=== PATIENT | male | born 1945 | race Caucasian/White ===

== ENCOUNTER 2017-08-24 09:19 | Emergency (ER) | payer MEDICARE, BC ==
[2017-08-24 09:26] VITALS: BP 162/79
--- NOTE | 2017-09-07 17:32 | UC ---
Rosa Ruelas Alfonso, scribed for Teresa Clayton DO on 08/24/17 at 1007 . Skin Complaint HPI - HPI Summary HPI Summary: This patient is a 72 year old M presenting to [facility] with a chief complaint of a skin mole at his low back noted 1 month ago. He reports the mole has changed in appearance. The patient rates the pain 0/10 in severity. - History of Current Complaint Chief Complaint: UCSkin Time Seen by Provider: 08/24/17 10:03 Stated Complaint: MOLE ON LOWER BACK Hx Obtained From: Patient Onset/Duration: Gradual Onset, Still Present, Other - Noted 1 month ago Timing: Constant Pain Intensity: 0 Pain Scale Used: 0-10 Numeric Location: Other - Low back Associated Signs & Symptoms: Positive: Negative - Allergy/Home Medications Allergies/Adverse Reactions: Allergies Allergy/AdvReac Type Severity Reaction Status Date / Time No Known Allergies Allergy Verified 08/24/17 09:25 Review of Systems Skin: Other - skin mole at low back All Other Systems Reviewed And Are Negative: Yes PMH/Surg Hx/FS Hx/Imm Hx Previously Healthy: Yes - Surgical History Surgical History: Yes Surgery Procedure, Year, and Place: TENDON REPAIR RT FINGER, VASECTOMY - Family History Known Family History: Positive: Other - CANCER Negative: Cardiac Disease, Hypertension, Diabetes - Social History Alcohol Use: Rare Substance Use Type: None Smoking Status (MU): Former Smoker Type: Cigarettes Have You Smoked in the Last Year: No When Did the Patient Quit Smoking/Using Tobacco: 1964 - Immunization History Most Recent Influenza Vaccination: 05/2017 Physical Exam Triage Information Reviewed: Yes Appearance: Well-Appearing, No Pain Distress, Well-Nourished Vital Signs: Initial Vital Signs Temp 98.0 F 08/24/17 09:20 Pulse 76 08/24/17 09:20 Resp 16 08/24/17 09:20 BP 162/79 08/24/17 09:20 Pulse Ox 99 08/24/17 09:20 Vital Signs Reviewed: Yes Eyes: Positive: Conjunctiva Clear. Negative: Discharge ENT: Positive: Hearing grossly normal. Negative: Muffled voice, Hoarse voice Neck exam: Normal Neck: Positive: Supple Respiratory: Positive: Lungs clear, Normal breath sounds, No respiratory distress, No accessory muscle use Cardiovascular: Positive: RRR, No Murmur Abdomen Description: Positive: Nontender, Soft. Negative: Distended, Guarding Bowel Sounds: Positive: Present Musculoskeletal Exam: Normal Neurological: Positive: Alert, Muscle Tone Normal Psychological Exam: Normal Psychological: Positive: Age Appropriate Behavior Skin: Positive: Other - Warm, Dry, Normal color. 2x2 cm irregular keratosis vs suspicious nevus Course/Dx - Course Course Of Treatment: Patient will be discharged with follow up from [facility] and PCP. The patient is agreeable with this plan. Medications reviewed. High blood pressure noted. - Diagnoses Provider Diagnoses: 2x2 cm irregular keratosis vs suspicious nevus. Elevated blood pressure without diagnosis of hypertension. Discharge - Discharge Plan Condition: Stable Disposition: HOME Referrals: Ike COULTER,Collette Chavarria [Medical Doctor] - Hussain Bender MD [Primary Care Provider] - Additional Instructions: YOUR MOEL HAS CHANGED IN SIZE AND SHAPE. THIS WARRANTS INVESTIGATION BY A PRECISION INSTRUMENT MAKER. WE HAVE WRITTEN A REFERRAL. Your blood pressure was elevated at 162/79 this visit. That does not mean you have hypertension, it is probably due to your current condition. Please follow up with your primary care provider. The documentation as recorded by the Rosa montgomery Alfonso accurately reflects the service I personally performed and the decisions made by me, Teresa Clayton DO.
== END 2017-08-24 10:38 | disposition home or self-care (01) ==
LOC: UCEAST 09:19
DX: D22.5 Melanocytic nevi of trunk (principal); R03.0 Elevated blood-pressure reading, without diagnosis of hypertension; Z87.891 Personal history of nicotine dependence
CPT/HCPCS: 99211; G0463

== ENCOUNTER 2017-12-26 18:40 | Emergency (ER) | payer MEDICARE, BC ==
[2017-12-26 19:55] LABS: ABS Basophils 0 10^3/ul (0-0.2); ABS Eosinophils 0 10^3/ul (0-0.6); ABS Lymphocytes 0.8 10^3/ul (1.0-4.8); ABS Monocytes 0.4 10^3/ul (0-0.8); ABS Neutrophils 1.2 10^3/ul (1.5-7.7); ABS Nucleated RBC 0 10^3/ul; Eosinophil % 0.3 % (0-6); Hematocrit 45 % (42-52); Hemoglobin 15.5 g/dl (14.0-18.0); Mean Corpuscular HGB Conc 35 g/dl (31-36); Mean Corpuscular Hemoglobin 33 pg (27-31); Mean Corpuscular Volume 94 fL (80-94); Mean Platelet Volume 8.8 um3 (7.4-10.4); Nucleated Red Blood Cells % 0.1; Platelet Count 100 10^3/ul (150-450); Red Blood Count 4.76 10^6/ul (4.0-5.4); Red Cell Distribution Width 14 % (10.5-15); White Blood Count 2.4 10^3/ul (3.5-10.8)
[2017-12-26 20:07] LABS: EGFR Non-African American 61.1 (>60)
--- NOTE | 2017-12-26 20:26 | RAD ---
Indication: Abdominal fullness/lower abdominal pressure. Comparison: June 12, 2006 CT. Technique: Supine and upright views of the abdomen. Report: Mild linear atelectasis at the LEFT lung base. No radiographic evidence for free air. Unremarkable bowel gas pattern. Only a small volume of stool is visualized within the colon. LEFT pelvic phlebolith noted. No suspicious calcifications evident. Unremarkable soft tissue contours. IMPRESSION: 1. No acute abdominal pelvic pathologic process evident. 2. Mild LEFT basilar atelectasis.
[2017-12-26 20:49] VITALS: BP 157/97
--- NOTE | 2017-12-26 20:56 | ED ---
Miya Ruelas Emily, scribed for Rickie Mckeon MD on 12/26/17 at 1935 . GI/ HPI - HPI Summary HPI Summary: This patient is a 72 year old M presenting to [facility] with a chief complaint of decreasing amount of stool production that began 2 days ago. The patient rates the pain 0/10 in severity. Symptoms aggravated by nothing. Symptoms alleviated by nothing. Patient reports abd pressure and dizziness. Patient denies nausea, vomiting, CP, SOB, fevers, dysuria, and hematochezia. Pt denies any previous constipation issues or bowel obstructions. - History of Current Complaint Chief Complaint: EDAbdPain Time Seen by Provider: 12/26/17 19:24 Stated Complaint: ABD PAIN Hx Obtained From: Patient Onset/Duration: Started Days Ago, Still Present Timing: Constant Severity: Mild Current Severity: Mild Pain Intensity: 0 Associated Signs and Symptoms: Positive: Other: - Positive abd pressure and dizziness. Negative nausea, vomiting, CP, SOB, fevers, dysuria, and hematochezia Aggravating Factor(s): Nothing Alleviating Factor(s): Nothing - Allergy/Home Medications Allergies/Adverse Reactions: Allergies Allergy/AdvReac Type Severity Reaction Status Date / Time No Known Allergies Allergy Verified 12/26/17 18:44 PMH/Surg Hx/FS Hx/Imm Hx Previously Healthy: No Endocrine/Hematology History: Denies: Hx Diabetes Cardiovascular History: Denies: Hx Hypertension, Hx Pacemaker/ICD History: Denies: Hx Renal Disease Sensory History: Reports: Hx Hearing Aid Psychiatric History: Denies: Hx Panic Disorder - Surgical History Surgery Procedure, Year, and Place: TENDON REPAIR RT FINGER, VASECTOMY Infectious Disease History: No Infectious Disease History: Denies: Traveled Outside the [place] in Last 30 Days - Family History Known Family History: Positive: Other - CANCER Negative: Cardiac Disease, Hypertension, Diabetes - Social History Occupation: Retired Lives: With Family Alcohol Use: Rare Substance Use Type: Reports: None Smoking Status (MU): Former Smoker Type: Cigarettes Have You Smoked in the Last Year: No Review of Systems Negative: Fever Negative: Chest Pain Negative: Shortness Of Breath Positive: Other - Positive abdominal pressure and decrease in stool production. Negative hematochezia. Negative: Vomiting, Nausea Negative: dysuria Neurological: Other - Positive dizziness All Other Systems Reviewed And Are Negative: Yes Physical Exam - Summary Physical Exam Summary: Appearance: Well appearing, no pain distress Skin: warm, dry, reflects adequate perfusion Head/face: normal Eyes: EOMI, MIREYA ENT: normal, mucous membranes are moist Neck: supple, non-tender Respiratory: CTA, breath sounds present Cardiovascular: RRR, pulses symmetrical Abdomen: non-tender, soft Rectal Exam: Rectal vault shows no impaction. Its mostly empty with soft brown stool. Bowel Sounds: present Musculoskeletal: normal, strength/ROM intact Neuro: normal, sensory motor intact, A&Ox3 Triage Information Reviewed: Yes Vital Signs On Initial Exam: Initial Vitals Temp Pulse Resp BP Pulse Ox 98.1 F 92 16 150/78 94 12/26/17 18:45 12/26/17 18:45 12/26/17 18:45 12/26/17 18:45 12/26/17 18:45 Vital Signs Reviewed: Yes Diagnostics - Vital Signs Vital Signs Temp Pulse Resp BP Pulse Ox 12/26/17 19:17 94 95 12/26/17 19:15 137/78 12/26/17 18:45 98.1 F 92 16 150/78 94 - Laboratory Lab Results: Lab Results 12/26/17 12/26/17 12/26/17 Range/Units 19:40 19:40 19:40 WBC 2.4 L (3.5-10.8) 10^3/ul RBC 4.76 (4.0-5.4) 10^6/ul Hgb 15.5 (14.0-18.0) g/dl Hct 45 (42-52) % MCV 94 (80-94) fL MCH 33 H (27-31) pg MCHC 35 (31-36) g/dl RDW 14 (10.5-15) % Plt Count 100 L (150-450) 10^3/ul MPV 8.8 (7.4-10.4) um3 Neut % (Auto) 48.3 (38-83) % Lymph % (Auto) 33.0 (25-47) % [place] % (Auto) 17.8 H (0-7) % Eos % (Auto) 0.3 (0-6) % Baso % (Auto) 0.6 (0-2) % Absolute Neuts (auto) 1.2 L (1.5-7.7) 10^3/ul Absolute Lymphs (auto) 0.8 L (1.0-4.8) 10^3/ul Absolute Monos (auto) 0.4 (0-0.8) 10^3/ul Absolute Eos (auto) 0 (0-0.6) 10^3/ul Absolute Basos (auto) 0 (0-0.2) 10^3/ul Absolute Nucleated RBC 0 10^3/ul Nucleated RBC % 0.1 Sodium 137 L (139-145) mmol/L Potassium 3.8 (3.5-5.0) mmol/L Chloride 102 (101-111) mmol/L Carbon Dioxide 25 (22-32) mmol/L Anion Gap 10 (2-11) mmol/L BUN 21 (6-24) mg/dL Creatinine 1.17 (0.67-1.17) mg/dL Est GFR ( Amer) 78.6 (>60) Est GFR (Non-Af Amer) 61.1 (>60) BUN/Creatinine Ratio 17.9 (8-20) Glucose 93 (70-100) mg/dL Lactic Acid 0.9 (0.5-2.0) mmol/L Calcium 8.7 (8.6-10.3) mg/dL Total Bilirubin 0.70 (0.2-1.0) mg/dL AST 71 H (13-39) U/L ALT 59 H (7-52) U/L Alkaline Phosphatase 59 (34-104) U/L Troponin I 0.02 (<0.04) ng/mL C-Reactive Protein 51.97 H (< 5.00) mg/L Total Protein 6.3 L (6.4-8.9) g/dL Albumin 3.8 (3.2-5.2) g/dL Globulin 2.5 (2-4) g/dL Albumin/Globulin Ratio 1.5 (1-3) Lipase 35 (11.0-82.0) U/L Result Diagrams: 12/26/17 19:40 12/26/17 19:40 Lab Statement: Any lab studies that have been ordered have been reviewed, and results considered in the medical decision making process. - Radiology Abd XR Radiology Interpretation Completed By: Radiologist - Abd XR reveals, per radiologist, 1. No acute abdominal pelvic pathologic process evident. 2. Mild LEFT basilar atelectasis. ED physician has reviewed this radiology report. - EKG 1933 Cardiac Rate: Tachycardia EKG Rhythm: Sinus Rhythm - 91 BPM EKG Interpretation: Nml axis and intervals Re-Evaluation - Re-Evaluation First Eval Re-Evaluation Time: 20:36 Change: Improved Comment: Pt feels better. Pt reports having cough and cold symptoms recently. GIGU Course/Dx - Course Assessment/Plan: Pt reports having cough and cold symptoms recently, which explains lowered WBC. Daily drinker which explains his mild LFT elevation. His abd is non-tender and the xrays are non-obstructive. There is no constipation evident. D/C with prn miralax and to f/u with PMD Thursday. likely all due to recent URI sx/viral syndr. - Diagnoses Differential Diagnoses - Male: Bowel Obstruction, Dehydration, Gall Bladder Disease, Gastroenteritis (Bacterial), Gastroenteritis (Viral), Irritable Bowel Syndrome, Pancreatitis, Urinary Tract Infection, Other - constipation Provider Diagnoses: Viral syndrome, Decreased stooling Discharge - Sign-Out/Discharge Documenting (check all that apply): Discharge - Discharge home - Discharge Plan Condition: Good Disposition: HOME Patient Education Materials: Viral Syndrome (ED) Referrals: Hussain Bender MD [Primary Care Provider] - Additional Instructions: Use a dose of Miralax daily until Thursday. This can be obtained over the counter. Cut back on drinking. Return with fever, abdominal pain, vomiting, worse or other concerns as discussed. Follow up with your doctor on thursday. - Billing Disposition and Condition Condition: GOOD Disposition: HOME The documentation as recorded by the Miya montgomery Emily accurately reflects the service I personally performed and the decisions made by me, Rickie Mckeon MD.
== END 2017-12-26 20:49 | disposition home or self-care (01) ==
LOC: ED 18:40
DX: B34.9 Viral infection, unspecified (principal); R19.5 Other fecal abnormalities; Z87.891 Personal history of nicotine dependence
CPT/HCPCS: 36415; 74019; 80053; 83605; 83690; 84484; 85025; 86140; 87040; 93005; 99282

== ENCOUNTER 2018-07-27 07:28 | Inpatient (IN) | payer MEDICARE, BC ==
[2018-07-27] MEDS ORDERED: Ondansetron INJ* 2 MG/ML VIAL IV ONE (08:02)
[2018-07-27] MEDS ORDERED: NS 0.9% 1000 ML* 1,000 ML IV ONE ×2 (08:02→09:10)
[2018-07-27] MEDS ORDERED: Ondansetron INJ* 2 MG/ML VIAL ONE (08:03)
[2018-07-27 08:21] LABS: ABS Basophils 0 10^3/ul (0-0.2); ABS Eosinophils 0.1 10^3/ul (0-0.6); ABS Lymphocytes 0.9 10^3/ul (1.0-4.8); ABS Monocytes 0.5 10^3/ul (0-0.8); ABS Neutrophils 3.2 10^3/ul (1.5-7.7); ABS Nucleated RBC 0 10^3/ul; Eosinophil % 1.3 % (0-6); Hematocrit 42 % (42-52); Hemoglobin 14.2 g/dl (14.0-18.0); Lymphocyte % 19.1 % (25-47); Mean Corpuscular HGB Conc 34 g/dl (31-36); Mean Corpuscular Hemoglobin 34 pg (27-31); Mean Corpuscular Volume 101 fL (80-94); Mean Platelet Volume 8.2 um3 (7.4-10.4); Nucleated Red Blood Cells % 0.1; Platelet Count 178 10^3/ul (150-450); Red Blood Count 4.22 10^6/ul (4.00-5.40); Red Cell Distribution Width 13 % (10.5-15); White Blood Count 4.8 10^3/ul (3.5-10.8)
[2018-07-27 08:36] LABS: INR 0.91 (0.77-1.02)
[2018-07-27 08:38] LABS: EGFR Non-African American 62.8 (>60)
[2018-07-27 09:59] LABS: Urine Appearance Clear; Urine Blood Negative (Negative); Urine Color Yellow; Urine Ketones Trace (Negative); Urine Protein Negative (Negative); Urine Specific Gravity 1.017 (1.010-1.030); Urine Urobilinogen Negative (Negative)
--- NOTE | 2018-07-27 10:35 | ED ---
GI/ HPI - HPI Summary HPI Summary: Pt. is a 73 y.o male who presents to the ER for vomiting and diarrhea with blood. Pt. states last night he started with blood tinged emesis and had a loose black bowel movement. Pt. denies abd. pain, CP, SOB. Past medical hx of BPH. Pt. admits to occasional aspirin use. He notes daily ETOH use and states he usually has a couple beers and a mixed drink per day. Symptoms are moderate in severity. No current modifying factors. Pt. also notes that he has been under a lot of stress over the last several months. He notes his left him in September and that his son in [place] has colorectal cancer. - History of Current Complaint Chief Complaint: EDNauseaVomitDiarrh Time Seen by Provider: 07/27/18 08:01 Stated Complaint: ABD PAIN Hx Obtained From: Patient Pain Intensity: 0 - Allergy/Home Medications Allergies/Adverse Reactions: Allergies Allergy/AdvReac Type Severity Reaction Status Date / Time No Known Allergies Allergy Verified 12/26/17 18:44 Home Medications: Home Medications Finasteride TAB* [Proscar TAB*] 5 mg PO DAILY 07/27/18 [History Confirmed ] Tamsulosin CAP* [Flomax CAP*] 0.4 mg PO DAILY 07/27/18 [History Confirmed ] PMH/Surg Hx/FS Hx/Imm Hx Previously Healthy: Yes Endocrine/Hematology History: Denies: Hx Diabetes Cardiovascular History: Denies: Hx Hypertension, Hx Pacemaker/ICD History: Denies: Hx Renal Disease Sensory History: Reports: Hx Hearing Aid Psychiatric History: Denies: Hx Panic Disorder - Surgical History Surgery Procedure, Year, and Place: TENDON REPAIR RT FINGER, VASECTOMY Infectious Disease History: No Infectious Disease History: Denies: Traveled Outside the [place] in Last 30 Days - Family History Known Family History: Positive: Other - CANCER Negative: Cardiac Disease, Hypertension, Diabetes - Social History Occupation: Retired Lives: Alone Alcohol Use: Daily Alcohol Amount: 2-3drinks Substance Use Type: Reports: None Smoking Status (MU): Former Smoker Type: Cigarettes Have You Smoked in the Last Year: No Review of Systems Constitutional: Negative Eyes: Negative ENT: Negative Cardiovascular: Negative Negative: Chest Pain Respiratory: Negative Negative: Shortness Of Breath Positive: Vomiting, Diarrhea, Nausea. Negative: Abdominal Pain Genitourinary: Negative Neurological: Negative All Other Systems Reviewed And Are Negative: Yes Physical Exam Triage Information Reviewed: Yes Vital Signs On Initial Exam: Initial Vitals Temp Pulse Resp BP Pulse Ox 97.5 F 122 20 118/90 95 07/27/18 07:33 07/27/18 07:33 07/27/18 07:33 07/27/18 07:33 07/27/18 07:33 Vital Signs Reviewed: Yes Appearance: Positive: Well-Appearing - Pt. sitting up in bed in NAD. Skin: Positive: Warm, Dry Head/Face: Positive: Normal Head/Face Inspection Eyes: Positive: Normal, EOMI Neck: Positive: Supple Respiratory/Lung Sounds: Positive: Clear to Auscultation, Breath Sounds Present Cardiovascular: Positive: Normal, RRR Abdomen Description: Positive: Nontender, Soft, Other: - Rectal exam: Performed with male nurse in room. Dried melenic stool noted around rectum. Digital exam revealed soft melenic stool. Neurological: Positive: Normal, CN Intact II-III Psychiatric: Positive: Affect/Mood Appropriate Diagnostics - Vital Signs Vital Signs Temp Pulse Resp BP Pulse Ox 07/27/18 07:33 97.5 F 122 20 118/90 95 - Laboratory Lab Results: Lab Results 07/27/18 07/27/18 07/27/18 Range/Units 08:11 08:11 08:11 WBC 4.8 (3.5-10.8) 10^3/ul RBC 4.22 (4.00-5.40) 10^6/ul Hgb 14.2 (14.0-18.0) g/dl Hct 42 (42-52) % MCV 101 H (80-94) fL MCH 34 H (27-31) pg MCHC 34 (31-36) g/dl RDW 13 (10.5-15) % Plt Count 178 (150-450) 10^3/ul MPV 8.2 (7.4-10.4) um3 Neut % (Auto) 67.3 (38-83) % Lymph % (Auto) 19.1 L (25-47) % [place] % (Auto) 11.3 H (0-7) % Eos % (Auto) 1.3 (0-6) % Baso % (Auto) 1.0 (0-2) % Absolute Neuts (auto) 3.2 (1.5-7.7) 10^3/ul Absolute Lymphs (auto) 0.9 L (1.0-4.8) 10^3/ul Absolute Monos (auto) 0.5 (0-0.8) 10^3/ul Absolute Eos (auto) 0.1 (0-0.6) 10^3/ul Absolute Basos (auto) 0 (0-0.2) 10^3/ul Absolute Nucleated RBC 0 10^3/ul Nucleated RBC % 0.1 INR (Anticoag Therapy) 0.91 (0.77-1.02) APTT 29.0 (26.0-36.3) seconds Sodium 138 (135-145) mmol/L Potassium 4.3 (3.5-5.0) mmol/L Chloride 104 (101-111) mmol/L Carbon Dioxide 26 (22-32) mmol/L Anion Gap 8 (2-11) mmol/L BUN 42 H (6-24) mg/dL Creatinine 1.14 (0.67-1.17) mg/dL Est GFR ( Amer) 76.0 (>60) Est GFR (Non-Af Amer) 62.8 (>60) BUN/Creatinine Ratio 36.8 H (8-20) Glucose 101 H (70-100) mg/dL Lactic Acid (0.5-2.0) mmol/L Calcium 8.7 (8.6-10.3) mg/dL Magnesium 2.0 (1.9-2.7) mg/dL Total Bilirubin 1.30 H (0.2-1.0) mg/dL AST 25 (13-39) U/L ALT 20 (7-52) U/L Alkaline Phosphatase 70 (34-104) U/L Troponin I 0.00 (<0.04) ng/mL C-Reactive Protein 2.65 (<8.01) mg/L Total Protein 5.8 L (6.4-8.9) g/dL Albumin 3.8 (3.2-5.2) g/dL Globulin 2.0 (2-4) g/dL Albumin/Globulin Ratio 1.9 (1-3) Lipase 12 (11.0-82.0) U/L Urine Color Urine Appearance Urine pH (5-9) Ur Specific [place] (1.010-1.030) Urine Protein (Negative) Urine Ketones (Negative) Urine Blood (Negative) Urine Nitrate (Negative) Urine Bilirubin (Negative) Urine Urobilinogen (Negative) Ur Leukocyte Esterase (Negative) Urine Glucose (Negative) 07/27/18 07/27/18 Range/Units 08:11 09:42 WBC (3.5-10.8) 10^3/ul RBC (4.00-5.40) 10^6/ul Hgb (14.0-18.0) g/dl Hct (42-52) % MCV (80-94) fL MCH (27-31) pg MCHC (31-36) g/dl RDW (10.5-15) % Plt Count (150-450) 10^3/ul MPV (7.4-10.4) um3 Neut % (Auto) (38-83) % Lymph % (Auto) (25-47) % [place] % (Auto) (0-7) % Eos % (Auto) (0-6) % Baso % (Auto) (0-2) % Absolute Neuts (auto) (1.5-7.7) 10^3/ul Absolute Lymphs (auto) (1.0-4.8) 10^3/ul Absolute Monos (auto) (0-0.8) 10^3/ul Absolute Eos (auto) (0-0.6) 10^3/ul Absolute Basos (auto) (0-0.2) 10^3/ul Absolute Nucleated RBC 10^3/ul Nucleated RBC % INR (Anticoag Therapy) (0.77-1.02) APTT (26.0-36.3) seconds Sodium (135-145) mmol/L Potassium (3.5-5.0) mmol/L Chloride (101-111) mmol/L Carbon Dioxide (22-32) mmol/L Anion Gap (2-11) mmol/L BUN (6-24) mg/dL Creatinine (0.67-1.17) mg/dL Est GFR ( Amer) (>60) Est GFR (Non-Af Amer) (>60) BUN/Creatinine Ratio (8-20) Glucose (70-100) mg/dL Lactic Acid 0.6 (0.5-2.0) mmol/L Calcium (8.6-10.3) mg/dL Magnesium (1.9-2.7) mg/dL Total Bilirubin (0.2-1.0) mg/dL AST (13-39) U/L ALT (7-52) U/L Alkaline Phosphatase (34-104) U/L Troponin I (<0.04) ng/mL C-Reactive Protein (<8.01) mg/L Total Protein (6.4-8.9) g/dL Albumin (3.2-5.2) g/dL Globulin (2-4) g/dL Albumin/Globulin Ratio (1-3) Lipase (11.0-82.0) U/L Urine Color Yellow Urine Appearance Clear Urine pH 5.0 (5-9) Ur Specific [place] 1.017 (1.010-1.030) Urine Protein Negative (Negative) Urine Ketones Trace A (Negative) Urine Blood Negative (Negative) Urine Nitrate Negative (Negative) Urine Bilirubin Negative (Negative) Urine Urobilinogen Negative (Negative) Ur Leukocyte Esterase Negative (Negative) Urine Glucose Negative (Negative) Result Diagrams: 07/27/18 08:11 07/27/18 08:11 Lab Statement: Any lab studies that have been ordered have been reviewed, and results considered in the medical decision making process. GIGU Course/Dx - Course Course Of Treatment: Pt. presenting with c/o blood tinged emesis and melenic stool. No gross bleeding on exam. BP is stable. HR elevated in the 120's. IV fluids started. Pt. given zofran. Blood work ordered. Labs show stable H and H. Stool positive for blood. Suspect bleeding upper GI ulcer secondary to ETOH abuse and stress. Pt. continues to be persistently tachycardic after 2 L of IV fluids. Hospitalist was consulted for admission. I spoke with Dr. Pop and pt. has been accepted to her service. Started on protonix. - Diagnoses Differential Diagnoses - Male: Gastritis, Gastroenteritis (Viral), Peptic Ulcer Disease, Ulcerative Colitis/Crohn's Disease Provider Diagnoses: Upper GI bleed, Alcohol abuse Discharge - Sign-Out/Discharge Documenting (check all that apply): Patient Departure - Discharge Plan Condition: Stable Disposition: ADMITTED TO [facility] Referrals: Hussain Bender MD [Primary Care Provider] - - Billing Disposition and Condition Condition: STABLE Disposition: Admitted to [facility]
[2018-07-27] MEDS ORDERED: Pantoprazole IV* 40 MG IV ONE (10:37)
[2018-07-27] MEDS ORDERED: Ondansetron INJ* 2 MG/ML VIAL IV PRN (11:55)
[2018-07-27] MEDS ORDERED: Al Hydrox/Mg Hydrox/Simet LIQ* 30 ML UDC PO PRN (11:55)
[2018-07-27] MEDS ORDERED: Acetaminophen TAB* 325 MG PO PRN (11:55)
[2018-07-27] MEDS ORDERED: Famotidine IV * 20 MG in NS 0.9% 100 ML* 100 ML IVPB SCH (12:00)
--- NOTE | 2018-07-27 12:06 | PN ---
Hospitalist Progress Note Date of Service: 07/27/18 HOSPITALIST ADDENDUM Mr Mccracken is 73yo M with PMH of BPH, ETOH abuse, who presented to ED with c/ o hematemesis and melena yesterday, with episodes that continued today. Denies using NSAIDs. Labs reviewed - H/H is normal with MCV elevation, BUN elevated with normal creatinine compatible with UGI bleed. Will admit to medical floor, continue IVF and Protonix drip, monitor H/H. Plan for GI consult for EGD. Agree with current management.
[2018-07-27] MEDS: Pantoprazole* 80 mg IN NS 80 MG/250 ML BAG IVPB SCH (12:36)
--- NOTE | 2018-07-27 14:02 | HP ---
AMENDED REPORT NOW INCLUDES DESIGNATED COSIGNER CC: Dr. Hussain Bender.* HISTORY AND PHYSICAL: DATE OF ADMISSION: 07/27/18 PRIMARY CARE PROVIDER: Dr. Hussain Bender. ATTENDING PHYSICIAN: Dr. Alena Mansfield * (dictated by Anna Holley NP). CHIEF COMPLAINT: 1. Bloody emesis. 2. Dark stools. HISTORY OF PRESENT ILLNESS: Mr. Rice is a 73-year-old male with past medical history of BPH and alcohol abuse, who presented to the emergency room today with complaints of bloody emesis and dark bowel movements. He states he had a large breakfast yesterday morning, which was more than he usually eats, consisting of eggs, grullon and a biscuit with gravy. He did not eat any lunch. He reported having a whiskey around 4:30 p.m. a cup of coffee, and then 2 beers and some popcorn around 5 p.m. Almost immediately after drinking the beer had an episode of vomiting, which he believed contained blood. Approximately half hour later, he had a black loose bowel movement. Later that night, he had a salad with red wine vinegar dressing. Immediately afterwards, he had another episode of emesis with blood. He additionally had 1 more loose black bowel movement before bed. He awoke around approximately 3 a.m. this morning with another black loose bowel movement. He complained of feeling dizzy and had decreased oral intake. He called [facility] and was directed to the emergency room. He called EMS, as he was afraid he would not be able to drive himself to the emergency room. After arriving in the emergency room, he had 1 more black bowel movement, though he reports this was more formed than the previous one. He reports that in September he split with his of 47 years. He also reports that his 38-year-old son has terminal brain cancer and both of these issues have been significant stressors for him. This has lead to increased alcohol intake, he reports approximately 1 to 3 drinks per day. He denies any history of previous GI bleed and felt in his usual health prior to this episode. While in the emergency room, Mr. Rice was noted to have a normal H and H. His MCV and MCH are slightly elevated. He had an elevated BUN and an elevated total bilirubin. Because of the concern for upper GI bleed, the hospitalist service was asked to evaluate for admission. PAST MEDICAL HISTORY: 1. BPH. 2. Alcohol abuse. PAST SURGICAL HISTORY: 1. Right finger tendon repair. 2. Vasectomy. HOME MEDICATIONS: 1. Tamsulosin 0.4 mg p.o. daily. 2. Finasteride 5 mg p.o. daily. 3. Tadalafil 5 mg p.o. daily p.r.n. ALLERGIES: No known drug allergies. FAMILY HISTORY: His mother in her 80s and had a medical history significant for cancer of unknown type, coronary artery disease, hypertension. His father at 86 due to complications from Alzheimer's. SOCIAL HISTORY: He reports a remote smoking history for approximately 3 years back in the 1960s. As noted above, he reports drinking approximately 1 to 3 drinks per day, beer and liquor. He denies recreational drug use. 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 He lives alone and has recently been from his as noted above. The patient's son, Donaldo, will be his surrogate decision maker in the event he is unable to make his own decisions. REVIEW OF SYSTEMS: An 11-point review of systems was performed and all the pertinent positive and negative findings are in the HPI. All other systems are negative. PHYSICAL EXAMINATION GENERAL: Mr. Rice is a well-developed, well-nourished white male, sitting in bed, in no acute distress. He appears his stated age. VITAL SIGNS: Temp 97.5, heart rate 122, respiratory rate 20, oxygen saturation 95% on room air, and blood pressure 118/90. HEENT: Head is normocephalic and atraumatic. Visual cabrera are grossly intact. Pupils are equal, round, and reactive to light and accommodation. Extraocular movements intact. Sclera without icterus. Oral mucous membranes moist and without lesions. NECK: Full range of motion. Thyroid not palpable. Trachea midline. No lymphadenopathy. RESPIRATORY: Symmetrical chest expansion. No chest wall deformities. Lungs are clear to auscultation throughout. No rhonchi, wheezes, or rales. CARDIOVASCULAR: Tachycardic with a regular rhythm. S1, S2 present. No murmurs , rubs, or gallops. No JVD. ABDOMEN: Slight tenderness to deep palpation to the left lower quadrant, otherwise nontender throughout. Bowel sounds are normoactive throughout. No bruits appreciated. No hepatosplenomegaly. EXTREMITIES: Skin warm and smooth bilaterally. No edema. No clubbing or cyanosis. Pedal pulses 2+ bilaterally. MUSCULOSKELETAL: Full range motion. No pain or deformities. NEURO: Awake, alert, and oriented x4. Cranial nerves II through XII are grossly intact. Moves all extremities. SKIN: Grossly intact without lesions. DIAGNOSTIC STUDIES/LAB DATA: WBC 4.8, RBC 4.22, hemoglobin 14.2, hematocrit 42 , MCV 101, MCH 34, platelets 178. INR 0.91. Sodium 138, potassium 4.3, chloride 104, carbon dioxide 26, BUN 42, creatinine 1.14, glucose 101, lactic acid 0.6, magnesium 2.0. Total bili 1.3, AST 25, ALT 28, alk phos 70. Troponin 0.00. Urinalysis unremarkable. EKG shows sinus tachycardia with a rate of 107. ASSESSMENT AND PLAN: Mr. Rice is a 73-year-old male with past medical history of benign prostatic hypertrophy and alcohol abuse, who presented to the emergency room today with complaints of hematemesis and melena and was found to have an upper GI bleed. The patient will be admitted observation status for: 1. Upper GI bleed. The patient's H and H is stable at this point and we will continue to trend the H and H q.6 hours. I have placed him on a Protonix drip and IV fluids. I have consulted GI. I have placed him on telemetry monitoring due to his tachycardia. We will also check B12 and folate levels due to his elevated MCV. He can have Zofran for nausea. 2. Benign prostatic hypertrophy. Continue finasteride and tamsulosin. 3. Alcohol abuse. We will monitor the patient for now. I have low suspicion that he will show severe signs of withdrawal as he has noted he has stopped drinking in the past; however, he will be placed on [facility] protocol if necessary. 4. Fluids, electrolytes, and nutrition: As noted above, I will give him fluids for hydration. I have ordered normal saline at a rate of 125. He will be n.p.o. at this time pending a GI consult. 5. Code status: The patient will be a full code. 6. DVT prophylaxis: Based on the DVT Risk Assessment, the patient scores a 2, making him moderate risk. I have placed him on SCDs only. TIME SPENT: Approximately 60 minutes were spent on this admission, greater than half of that time spent with the patient obtaining my history, performing my physical exam, and reviewing the plan of care. This case has been reviewed with my attending, Dr. Mansfield, who is in agreement with the plan of care. ANNA HOLLEY, [employer] [id number]/[facility] #: [id number] TARA
[2018-07-27] MEDS ORDERED: fentaNYL* 50 MCG/ML 2 ML VIAL (100 MCG VIAL) ONE (14:38)
[2018-07-27] MEDS ORDERED: Midazolam* 1 MG/ML 10 ML VIAL (10 MG) ONE (14:38)
[2018-07-27 16:34] LABS: Hematocrit 35 % (42-52)
--- NOTE | 2018-07-27 17:27 | CONS ---
GASTROENTEROLOGY CONSULT: DATE: 07/27/18 REFERRING PHYSICIANS: Dr. Rickie Mckeon, emergency room; Dr. Hussain Bender. REASON FOR CONSULTATION: Hematemesis and melena beginning yesterday evening with no history of syncope. 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 Shortly thereafter, he had a loose black stool. He went home and had a couple of more black stools over the next few hours including awakening him at midnight at 3 a.m. There was no dizziness or syncope. He had no more emesis. This morning, he had no pain, but was concerned and came in by ambulance. His vitals have been stable. CBC shows hemoglobin 14. BUN elevated in the 40s over his baseline in the 20s. He states he has not been treated for GI issues by Dr. Bender. He does have some Tums at home and will have it with episode of indigestion and takes some a couple of times a month. A couple of months ago, he began taking a baby aspirin and then running out of that and he has been taking an adult aspirin about third day. He denies any NSAIDs and several indications were reviewed. He has had colonoscopies regularly through the [facility], most recently possibly in 2016 that was negative. He has son, age 38, living in [place] with metastatic colon cancer. PAST MEDICAL HISTORY: 1. Vasectomy in 1970s. 2. BPH. 3. Stress and marital discord. SOCIAL HISTORY: He was from his over 40 years in September. There is tremendous stress as his son in [place] has metastatic colon cancer , widespread including to brain. Apparently, documentary has been about his son 's treatment, "the mountain in the hallway." He has a second son in [facility] living locally ). REVIEW OF SYSTEMS: No history of dizziness, seizures, TIA, CVA, MS, neurologic disorder, angina, abnormal stress test, TB, hemoptysis, hepatitis, or abdominal surgery. He did have a colon polyp longtime ago. EXAM: He is a surprisingly healthy appearing, older man, appearing quite fit. He is very polite and apologetic. Reviewing all the things that he believes lead to this situation. HEENT exam shows no icterus or adenopathy. His lungs are clear and heart sounds are normal. The abdomen is symmetric, soft and nontender. Rectal: Deferred. Extremities show no edema or deformity. Neurologic is nonfocal. LABS: INR normal at 0.9 and LFTs normal with ALT 22. IMPRESSION: Upper GI bleeding, which may very well be from Farida-Wang or gastritis as opposed to a defined ulcer. Upper endoscopy is indicated to prognostic aid and allow specific treatment advice. [id number]/[facility] #: [id number] [facility]
[2018-07-27 19:45] LABS: Hematocrit 38 % (42-52)
[2018-07-27] MEDS: NS 0.9% 1000 ML* 1,000 ML IV SCH (20:25)
[2018-07-28] MEDS: Pantoprazole* 80 mg IN NS 80 MG/250 ML BAG IVPB SCH ×3 (01:07→15:36)
[2018-07-28] MEDS: NS 0.9% 1000 ML* 1,000 ML IV SCH ×2 (01:20→13:56)
[2018-07-28 02:14] LABS: Hematocrit 34 % (42-52); Hemoglobin 11.7 g/dl (14.0-18.0)
--- NOTE | 2018-07-28 02:55 | PRO ---
DATE: 07/27/18 - ROOM #[id number] REFERRING PHYSICIANS: Hussain Bender MD; Alena Mansfield MD * PROCEDURE: Upper gastrointestinal endoscopy and biopsy of Mahoney's segment at 32, erosion of Mahoney's esophagus at 35, and esophageal mass at 28 cm. INDICATION: Hematemesis in a man drinking more alcohol recently because of marital stress. ENDOSCOPIST: Hrebie Washburn MD MEDICATIONS: Midazolam 8, fentanyl 75. FINDINGS: He is a slender, generally healthy-appearing older man, in no distress. In general, he appears quite comfortable. He was positioned on his side and incremental doses of midazolam and fentanyl given with good effect and he was quite comfortable with minimal gagging during the procedure. EGD: Larynx - narrow, symmetric views. Esophagus - easily entered and from 18 to 21 or 22, the mucosa was normal and then there was a transition to Mahoney's with no erosions or ulcer. It was a very long Mahoney's segment. At 28 at about 4 o'clock orientation, there was a mass one third circumferential, moderately elevated plaque-like with a slight blood clot attached in the central portion that was slightly depressed. The mass clearly had a worrisome appearance. It was not occluding the lumen. The Mahoney's segment continued and there was a small erosion with slight irregularity of the mucosa at about 35 cm. This area was biopsied x3. Smooth Mahoney's at 32 to 32-1/2 was biopsied x2 and the mass itself was biopsied x5 in various aspects. The EG junction was at 38 and the hiatus at 40 to 41. Stomach - generally normal mucosa without any blood contained in it. The rugal pattern was normal. The antrum appeared normal. Duodenum - pylorus, bulb, and second through fourth portions appear normal. IMPRESSION: 1. Moderate hiatal hernia. 2. Long segment Mahoney's esophagus. 3. Mahoney's erosion at 35 cm - biopsy pending. 4. Esophageal mass at 28 cm, biopsy pending. [id number]/[facility] #: [id number] [facility]
[2018-07-28 06:52] LABS: ABS Basophils 0.1 10^3/ul (0-0.2); ABS Eosinophils 0.1 10^3/ul (0-0.6); ABS Lymphocytes 0.9 10^3/ul (1.0-4.8); ABS Monocytes 0.4 10^3/ul (0-0.8); ABS Neutrophils 2.7 10^3/ul (1.5-7.7); ABS Nucleated RBC 0 10^3/ul; Hematocrit 33 % (42-52); Hemoglobin 11.6 g/dl (14.0-18.0); Lymphocyte % 21.2 % (25-47); Mean Corpuscular HGB Conc 35 g/dl (31-36); Mean Corpuscular Hemoglobin 35 pg (27-31); Mean Corpuscular Volume 100 fL (80-94); Mean Platelet Volume 8.3 um3 (7.4-10.4); Nucleated Red Blood Cells % 0; Platelet Count 140 10^3/ul (150-450); Red Blood Count 3.33 10^6/ul (4.00-5.40); Red Cell Distribution Width 13 % (10.5-15); White Blood Count 4.1 10^3/ul (3.5-10.8)
[2018-07-28 07:07] LABS: EGFR Non-African American 66.8 (>60)
[2018-07-28] MEDS ORDERED: Iohexol 300* (CONTRAST) 10 ML SDV IV ONE (08:21)
[2018-07-28] MEDS: Cyanocobalamin TAB* 500 MCG PO SCH (10:26)
[2018-07-28] MEDS: Tamsulosin CAP* 0.4 MG PO SCH (10:26)
[2018-07-28] MEDS: Finasteride TAB* 5 MG PO SCH (10:27)
--- NOTE | 2018-07-28 10:31 | RAD ---
HISTORY: esophageal cancer staging COMPARISONS: CT of the abdomen and pelvis dated June 12, 2006 TECHNIQUE: Multiple contiguous axial CT scans were obtained of the chest, abdomen, and pelvis after the administration of intravenous contrast. Coronal and sagittal multiplanar reformations are submitted for review.. Oral contrast was administered. Delayed images were obtained through the abdomen and pelvis. FINDINGS: CHEST NECK AND THYROID: The lower neck and thyroid are unremarkable. CHEST WALL: There is no lower cervical, axillary, or supraclavicular lymphadenopathy by size criteria. HEART AND PERICARDIUM: Coronary artery calcifications are noted. AORTA AND PULMONARY VASCULATURE: There is calcification of the thoracic aorta. The pulmonary vasculature is unremarkable. MEDIASTINUM: There is no mediastinal lymphadenopathy by size criteria. FAISAL: There is no hilar lymphadenopathy by size criteria. AIRWAY AND ESOPHAGUS: There is focal mucosal thickening of the mid third of the esophagus. LUNG PARENCHYMA: There is a 0.5 cm pleural-based nodule of the left lower lobe on axial image 46. There are small, 0.3 cm nodules along the left fissure consistent with intrapulmonary lymph nodes. PLEURA: No pleural abnormalities are noted. BONES AND SOFT TISSUES: Mild degenerative changes are noted. ABDOMEN/PELVIS: LIVER: The liver is diffusely low in attenuation compared to the spleen. There are no focal hepatic parenchymal masses. BILE DUCTS: There is no intrahepatic or extrahepatic biliary dilatation. GALLBLADDER: The gallbladder is normal, without pericholecystic inflammatory change. PANCREAS: The pancreas is normal, without mass or ductal dilatation. SPLEEN: Normal in size and appearance. UPPER GI TRACT: Evaluation of the gastrointestinal tract is limited by incomplete gastric distention. There is a 2.6 cm diverticulum of the second stage of the duodenum. SMALL BOWEL & MESENTERY: The small bowel is normal in contour, course, and caliber. There is no obstruction or dilatation. COLON: There is extensive diverticulosis of the descending and sigmoid colon. There is no pericolonic inflammatory change. ADRENALS: Normal bilaterally. KIDNEYS: The kidneys are normal in shape, size, contour, and axis. There is no hydronephrosis or nephrolithiasis. BLADDER: The bladder is smooth in contour. PELVIC ORGANS: The prostate is diffusely enlarged. The seminal vesicles are symmetric. AORTA: There is calcific atherosclerotic disease of the abdominal aorta and its branches, without aneurysmal dilatation IVC: Unremarkable LYMPH NODES: There is no lymphadenopathy by size criteria. ABDOMINAL WALL: There is no evidence for abdominal wall hernia. BONES AND SOFT TISSUES: There are mild diffuse degenerative changes. OTHER: None IMPRESSION: 1. FOCAL MUCOSAL THICKENING OF THE MID THIRD OF THE ESOPHAGUS. 2. LOW SUSPICION 0.5 CM PLEURAL-BASED NODULE OF THE LEFT LOWER LOBE. 3. NO LYMPHADENOPATHY BY SIZE CRITERIA. 4. EXTENSIVE COLONIC DIVERTICULOSIS. 5. DIVERTICULUM OF THE SECOND STAGE OF THE DUODENUM. 6. ATHEROSCLEROSIS. 7. ENLARGED PROSTATE.
--- NOTE | 2018-07-28 17:16 | PN ---
Subjective Date of Service: 07/28/18 Interval History: Continues to have melena.Hgb/Hct stable. No light headedness, SOB or chest pain. CT abd/pelvis without clear masses (other than esophagous) or LAD. Diverticulosis, Prostate enlargement. Does occasionally take TUMS for acid reflux like symptoms. Biopsy has resulted in @28cm with invasive mod-poorly differentiated adenocarcinoma and @35cm with moderately differentiated adenocarcinoma. Had many questions answered, some of the multiple times. Very active skier. Had MRI of Brain on 12/15/[address] Blood (unremarkable). [facility] [place] (had some hearing issues and got b/l hearing aides). Had MOCA of . 1-2 beers a night plus liquor. Son Donaldo at bedside Objective Active Medications: Acetaminophen (Tylenol Tab*) 650 mg PO Q4H PRN PRN Reason: FEVER/PAIN Al Hydrox/Mg Hydrox/Simethicone (Maalox Plus*) 30 ml PO Q6H PRN PRN Reason: INDIGESTION Cyanocobalamin (Vitamin B12 Tab*) 1,000 mcg PO DAILY [facility] Last Admin: 07/28/18 10:26 Dose: 1,000 mcg Finasteride (Proscar Tab*) 5 mg PO DAILY [facility] Last Admin: 07/28/18 10:27 Dose: 5 mg Sodium Chloride (Ns 0.9% 1000 Ml*) 1,000 mls @ 125 mls/hr IV PER RATE [facility] Last Admin: 07/28/18 13:56 Dose: 125 mls/hr Pantoprazole Sodium (Protonix Iv Bag*) 80 mg in 250 mls @ 25 mls/hr IVPB Q12H [facility] Last Admin: 07/28/18 15:36 Dose: 25 mls/hr Ondansetron HCl (Zofran Inj*) 4 mg IV Q4H PRN PRN Reason: NAUSEA/VOMITING Tamsulosin HCl (Flomax Cap*) 0.4 mg PO DAILY [facility] Last Admin: 07/28/18 10:26 Dose: 0.4 mg Vital Signs - 8 hr 07/28/18 07/28/18 11:34 14:00 Temperature 97.6 F 97.8 F Pulse Rate 93 110 Respiratory 18 20 Rate Blood Pressure 159/88 137/69 (mmHg) O2 Sat by Pulse 99 99 Oximetry Oxygen Devices in Use Now: None Appearance: NAD Eyes: No Scleral Icterus, PERRLA Ears/Nose/Mouth/Throat: NL Teeth, Lips, Gums, Mucous Membranes Moist Neck: NL Appearance and Movements; NL JVP Respiratory: Symmetrical Chest Expansion and Respiratory Effort, Clear to Auscultation Extremities: No Edema, No Clubbing, Cyanosis Skin: No Rash or Ulcers Neurological: Alert and Oriented x 3, NL Sensation, - - no nystagmus Nutrition: Taking PO's Result Diagrams: 07/28/18 06:23 07/28/18 06:23 Additional Lab and Data: Laboratory Results - last 24 hr 07/27/18 07/28/18 07/28/18 19:31 02:09 06:23 WBC 4.1 RBC 3.33 L Hgb 13.0 L 11.7 L 11.6 L Hct 38 L 34 L 33 L MCV 100 H MCH 35 H MCHC 35 RDW 13 Plt Count 140 L MPV 8.3 Neut % (Auto) 65.4 Lymph % (Auto) 21.2 L [place] % (Auto) 10.2 H Eos % (Auto) 2.0 Baso % (Auto) 1.2 Absolute Neuts (auto) 2.7 Absolute Lymphs (auto) 0.9 L Absolute Monos (auto) 0.4 Absolute Eos (auto) 0.1 Absolute Basos (auto) 0.1 Absolute Nucleated RBC 0 Nucleated RBC % 0 Sodium Potassium Chloride Carbon Dioxide Anion Gap BUN Creatinine Est GFR ( Amer) Est GFR (Non-Af Amer) BUN/Creatinine Ratio Glucose Calcium 07/28/18 06:23 WBC RBC Hgb Hct MCV MCH MCHC RDW Plt Count MPV Neut % (Auto) Lymph % (Auto) [place] % (Auto) Eos % (Auto) Baso % (Auto) Absolute Neuts (auto) Absolute Lymphs (auto) Absolute Monos (auto) Absolute Eos (auto) Absolute Basos (auto) Absolute Nucleated RBC Nucleated RBC % Sodium 141 Potassium 4.4 Chloride 113 H Carbon Dioxide 26 Anion Gap 2 BUN 20 Creatinine 1.08 Est GFR ( Amer) 80.9 Est GFR (Non-Af Amer) 66.8 BUN/Creatinine Ratio 18.5 Glucose 94 Calcium 8.0 L Microbiology and Other Data: Microbiology 07/27/18 15:25 Gastric Antrum CLOtest - Final 07/27/18 09:35 Stool Stool Occult Blood (LAURA) - Final Assess/Plan/Problems-Billing Assessment: 73 yo male PMH BPH and significant EtOH presenting with melena, hematemesis. Found to have mod-poorly differentiated 1/3 circumferential thickening of esophagus and Hilario's esophagus. No LAD or mass on CT abd/pelvis. - Patient Problems (1) Esophageal adenocarcinoma Current Visit: Yes Status: Acute Code(s): C15.9 - MALIGNANT NEOPLASM OF ESOPHAGUS, UNSPECIFIED SNOMED Code(s): 009260705 Comment: f/u heme/onc recs. In setting of acid reflux symptoms (intermittent ) and EtOH use. s/p CT abd/pelvis. MRI Brain in November 2017 was unremarkable. (2) ETOH abuse Current Visit: Yes Status: Acute Code(s): F10.10 - ALCOHOL ABUSE, UNCOMPLICATED SNOMED Code(s): 25115270 Comment: thiamine, folic acid, MVI ativan if needed (3) Acute blood loss anemia Current Visit: Yes Status: Acute Code(s): D62 - ACUTE POSTHEMORRHAGIC ANEMIA SNOMED Code(s): 155445981 Comment: from bleedin plaque and hilario's esophagous. CBC daily b12 supplementation. (actually macrocytic) (4) Melena Current Visit: Yes Status: Acute Code(s): K92.1 - MELENA SNOMED Code(s): 7919904 Comment: cbc daily on protonix gtt. consider to po BID. appreciate GI recs. (5) B12 deficiency Current Visit: Yes Status: Acute Code(s): E53.8 - DEFICIENCY OF OTHER SPECIFIED B GROUP VITAMINS SNOMED Code(s): 035697798 Comment: b12 supplementation 1mg daily. Status and Disposition: medicine inpatient.
[2018-07-28] MEDS: Folic Acid TAB* 1 MG PO SCH (18:09)
[2018-07-28] MEDS: Thiamine TAB* 100 MG TAB PO SCH (18:09)
[2018-07-29 00:41] LABS: Hematocrit 32 % (42-52); Hemoglobin 10.9 g/dl (14.0-18.0)
[2018-07-29] MEDS: Pantoprazole* 80 mg IN NS 80 MG/250 ML BAG IVPB SCH (04:52)
[2018-07-29 07:40] LABS: ABS Basophils 0 10^3/ul (0-0.2); ABS Eosinophils 0.1 10^3/ul (0-0.6); ABS Lymphocytes 0.8 10^3/ul (1.0-4.8); ABS Monocytes 0.4 10^3/ul (0-0.8); ABS Neutrophils 2.1 10^3/ul (1.5-7.7); ABS Nucleated RBC 0 10^3/ul; Hematocrit 31 % (42-52); Hemoglobin 10.8 g/dl (14.0-18.0); Lymphocyte % 24.4 % (25-47); Mean Corpuscular HGB Conc 35 g/dl (31-36); Mean Corpuscular Hemoglobin 35 pg (27-31); Mean Corpuscular Volume 101 fL (80-94); Mean Platelet Volume 8.8 um3 (7.4-10.4); Nucleated Red Blood Cells % 0; Platelet Count 129 10^3/ul (150-450); Red Cell Distribution Width 13 % (10.5-15); White Blood Count 3.4 10^3/ul (3.5-10.8)
[2018-07-29 09:22] VITALS: BP 153/91
[2018-07-29] MEDS: Tamsulosin CAP* 0.4 MG PO SCH (09:34)
[2018-07-29] MEDS: Thiamine TAB* 100 MG TAB PO SCH (09:34)
[2018-07-29] MEDS: Cyanocobalamin TAB* 500 MCG PO SCH (09:34)
[2018-07-29] MEDS: Finasteride TAB* 5 MG PO SCH (09:34)
[2018-07-29] MEDS: Folic Acid TAB* 1 MG PO SCH (09:34)
[2018-07-29] MEDS: NS 0.9% 1000 ML* 1,000 ML IV SCH (09:57)
--- NOTE | 2018-07-29 10:39 | CONSULT ---
Consultation - Reason for Consultation Reason for Consultation: esophageal cancer Ordering Provider: Landry Schreiber Chief Complaint: hematemesis History of Present Illness: 73 yo M in good general health with newly diagnosed esophageal CA. Bhavin presented with acute onset of vomiting of blood and black stools. He came to the hospital and was found to be anemic. Upper endoscopy done by Dr. Washburn revealed long segment Mahoney's, a nonobstructing mass at 28 cm, and a small ulcerated lesion at 35 cm. Biopsy at 28 cm was a well to moderately differentiated adenoCA. Bx at 35 cm was a moderate to poorly differentiated adenoCA. We are being consulted for this. Staging CT C/A/P, which I have personally reviewed, does not show any obvious metastatic disease or ELEN. He does report 7-10 lb weight loss, which he attributes to stress over from his , and the fact that his 38 yo son has metastatic colon cancer. He denies reflux symptoms per se, but does sleep with his bed elevated and with two pillows to prevent this. He rarely takes tums. He does endorse starting to drink more heavily in the last several months related to above stressors. Allergies/Medications Medication: Acetaminophen (Tylenol Tab*) 650 mg PO Q4H PRN PRN Reason: FEVER/PAIN Al Hydrox/Mg Hydrox/Simethicone (Maalox Plus*) 30 ml PO Q6H PRN PRN Reason: INDIGESTION Cyanocobalamin (Vitamin B12 Tab*) 1,000 mcg PO DAILY [facility] Last Admin: 07/29/18 09:34 Dose: 1,000 mcg Finasteride (Proscar Tab*) 5 mg PO DAILY [facility] Last Admin: 07/29/18 09:34 Dose: 5 mg Folic Acid (Folvite Tab*) 1 mg PO DAILY [facility] Last Admin: 07/29/18 09:34 Dose: 1 mg Sodium Chloride (Ns 0.9% 1000 Ml*) 1,000 mls @ 125 mls/hr IV PER RATE [facility] Last Admin: 07/29/18 09:57 Dose: 125 mls/hr Pantoprazole Sodium (Protonix Iv Bag*) 80 mg in 250 mls @ 25 mls/hr IVPB Q12H [facility] Last Admin: 07/29/18 04:52 Dose: 25 mls/hr Ondansetron HCl (Zofran Inj*) 4 mg IV Q4H PRN PRN Reason: NAUSEA/VOMITING Tamsulosin HCl (Flomax Cap*) 0.4 mg PO DAILY [facility] Last Admin: 07/29/18 09:34 Dose: 0.4 mg Thiamine HCl (Vitamin B-1 Tab*) 100 mg PO DAILY [facility] Last Admin: 07/29/18 09:34 Dose: 100 mg Allergies/Adverse Reactions: Allergies Allergy/AdvReac Type Severity Reaction Status Date / Time No Known Allergies Allergy Verified 12/26/17 18:44 History - Past Medical History Other History: BPH. 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 Review of Systems - Review of Systems Constitutional Symptoms: Positive: Weight Loss - 7-10 lbs Dermatology: Positive: Normal HEENT: Positive: Normal Eyes: Positive: Normal Thyroid: Positive: Normal Pulmonary: Positive: Normal Cardiology: Positive: Normal Gastroenterology: Positive: Blood in Stools, Haematemesis, Other Genital - Urinary: Positive: Normal Endocrinology: Positive: Normal Neurology: Positive: Normal Psychiatry: Positive: Depression, Anxiety Physical Exam - Physical Exam Physical Examination: Vital Signs Temp Pulse Resp BP Pulse Ox 98.2 F 110 16 153/91 98 07/29/18 08:50 07/29/18 08:50 07/29/18 08:50 07/29/18 08:50 07/29/18 08:50 sitting up in nad perr eomi op moist CTA bl s1 s2 nl soft nt +Bs no le edema no ELEN A+O x 3, nonfocal neurological exam no rashes Results - Lab Results Lab Results: 07/27/18 07/27/18 07/27/18 08:11 08:11 08:11 WBC 4.8 RBC 4.22 Hgb 14.2 Hct 42 MCV 101 H MCH 34 H MCHC 34 RDW 13 Plt Count 178 MPV 8.2 Neut % (Auto) 67.3 Lymph % (Auto) 19.1 L [place] % (Auto) 11.3 H Eos % (Auto) 1.3 Baso % (Auto) 1.0 Absolute Neuts (auto) 3.2 Absolute Lymphs (auto) 0.9 L Absolute Monos (auto) 0.5 Absolute Eos (auto) 0.1 Absolute Basos (auto) 0 Absolute Nucleated RBC 0 Nucleated RBC % 0.1 INR (Anticoag Therapy) 0.91 APTT 29.0 Sodium 138 Potassium 4.3 Chloride 104 Carbon Dioxide 26 Anion Gap 8 BUN 42 H Creatinine 1.14 Est GFR ( Amer) 76.0 Est GFR (Non-Af Amer) 62.8 BUN/Creatinine Ratio 36.8 H Glucose 101 H Lactic Acid Calcium 8.7 Magnesium 2.0 Total Bilirubin 1.30 H AST 25 ALT 20 Alkaline Phosphatase 70 Troponin I 0.00 C-Reactive Protein 2.65 Total Protein 5.8 L Albumin 3.8 Globulin 2.0 Albumin/Globulin Ratio 1.9 Lipase 12 Vitamin B12 133 L Folate 13.13 Urine Color Urine Appearance Urine pH Ur Specific [place] Urine Protein Urine Ketones Urine Blood Urine Nitrate Urine Bilirubin Urine Urobilinogen Ur Leukocyte Esterase Urine Glucose 07/27/18 07/27/18 07/27/18 08:11 09:42 16:29 WBC RBC Hgb 12.0 L Hct 35 L MCV MCH MCHC RDW Plt Count MPV Neut % (Auto) Lymph % (Auto) [place] % (Auto) Eos % (Auto) Baso % (Auto) Absolute Neuts (auto) Absolute Lymphs (auto) Absolute Monos (auto) Absolute Eos (auto) Absolute Basos (auto) Absolute Nucleated RBC Nucleated RBC % INR (Anticoag Therapy) APTT Sodium Potassium Chloride Carbon Dioxide Anion Gap BUN Creatinine Est GFR ( Amer) Est GFR (Non-Af Amer) BUN/Creatinine Ratio Glucose Lactic Acid 0.6 Calcium Magnesium Total Bilirubin AST ALT Alkaline Phosphatase Troponin I C-Reactive Protein Total Protein Albumin Globulin Albumin/Globulin Ratio Lipase Vitamin B12 Folate Urine Color Yellow Urine Appearance Clear Urine pH 5.0 Ur Specific [place] 1.017 Urine Protein Negative Urine Ketones Trace A Urine Blood Negative Urine Nitrate Negative Urine Bilirubin Negative Urine Urobilinogen Negative Ur Leukocyte Esterase Negative Urine Glucose Negative 07/27/18 07/28/18 07/28/18 19:31 02:09 06:23 WBC 4.1 RBC 3.33 L Hgb 13.0 L 11.7 L 11.6 L Hct 38 L 34 L 33 L MCV 100 H MCH 35 H MCHC 35 RDW 13 Plt Count 140 L MPV 8.3 Neut % (Auto) 65.4 Lymph % (Auto) 21.2 L [place] % (Auto) 10.2 H Eos % (Auto) 2.0 Baso % (Auto) 1.2 Absolute Neuts (auto) 2.7 Absolute Lymphs (auto) 0.9 L Absolute Monos (auto) 0.4 Absolute Eos (auto) 0.1 Absolute Basos (auto) 0.1 Absolute Nucleated RBC 0 Nucleated RBC % 0 INR (Anticoag Therapy) APTT Sodium Potassium Chloride Carbon Dioxide Anion Gap BUN Creatinine Est GFR ( Amer) Est GFR (Non-Af Amer) BUN/Creatinine Ratio Glucose Lactic Acid Calcium Magnesium Total Bilirubin AST ALT Alkaline Phosphatase Troponin I C-Reactive Protein Total Protein Albumin Globulin Albumin/Globulin Ratio Lipase Vitamin B12 Folate Urine Color Urine Appearance Urine pH Ur Specific [place] Urine Protein Urine Ketones Urine Blood Urine Nitrate Urine Bilirubin Urine Urobilinogen Ur Leukocyte Esterase Urine Glucose 07/28/18 07/29/18 07/29/18 06:23 00:29 06:03 WBC 3.4 L RBC 3.10 L Hgb 10.9 L 10.8 L Hct 32 L 31 L MCV 101 H MCH 35 H MCHC 35 RDW 13 Plt Count 129 L MPV 8.8 Neut % (Auto) 60.7 Lymph % (Auto) 24.4 L [place] % (Auto) 11.7 H Eos % (Auto) 2.0 Baso % (Auto) 1.2 Absolute Neuts (auto) 2.1 Absolute Lymphs (auto) 0.8 L Absolute Monos (auto) 0.4 Absolute Eos (auto) 0.1 Absolute Basos (auto) 0 Absolute Nucleated RBC 0 Nucleated RBC % 0 INR (Anticoag Therapy) APTT Sodium 141 Potassium 4.4 Chloride 113 H Carbon Dioxide 26 Anion Gap 2 BUN 20 Creatinine 1.08 Est GFR ( Amer) 80.9 Est GFR (Non-Af Amer) 66.8 BUN/Creatinine Ratio 18.5 Glucose 94 Lactic Acid Calcium 8.0 L Magnesium Total Bilirubin AST ALT Alkaline Phosphatase Troponin I C-Reactive Protein Total Protein Albumin Globulin Albumin/Globulin Ratio Lipase Vitamin B12 Folate Urine Color Urine Appearance Urine pH Ur Specific [place] Urine Protein Urine Ketones Urine Blood Urine Nitrate Urine Bilirubin Urine Urobilinogen Ur Leukocyte Esterase Urine Glucose - Radiology Radiology Results: CT scan, personally reviewed, report as per EMR Assessment and Plan Impression: 73 yo M w 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 We discussed this diagnosis at length (he also asked me to take notes for him which were provided) . We reviewed the next steps for staging, including EUS and PET scan. I do believe he would be a good candidate for trimodality therapy (chemoRT followed by esophagectomy) and will refer him to surgical oncology and radiation oncology as well. I anticipate that he will be discharged today and will follow up with me as an outpatient. Thank you for this consultation
--- NOTE | 2018-07-30 07:45 | DS ---
DISCHARGE SUMMARY: DATE OF ADMISSION: 07/27/18 DATE OF DISCHARGE: 07/29/18 PRIMARY CARE PROVIDER: Dr. Hussain Bender. ADMITTING PROVIDER: Anna Holley NP ATTENDING PHYSICIAN ON DISCHARGE: Landry Schreiber MD CONSULTING INDEPENDENT LIVING ADVISOR/ONCOLOGIST: Dr. Juliana Harper CONSULTING GI PHYSICIAN: Herbie Washburn MD. CHIEF COMPLAINT: Bloody emesis and dark black stools. PRINCIPAL DIAGNOSES: Hematemesis and melena in the setting of newly diagnosed esophageal adenocarcinoma and Mahoney's esophagus. HISTORY OF PRESENT ILLNESS AND HOSPITAL COURSE: Bhavin Rice is a 73-year- old male with past medical history of BPH, alcohol abuse, who presented to the emergency room with bloody emesis and dark black tarry bowel movements. Please see [facility] for full details. He is a frequent drinker, especially after his of 47 years split up with him, and been under a lot of stress as his son has metastatic colon cancer to the brain. He has a history of colonoscopies through the [facility] last 2 reported to have been negative, but polyp on the one prior to that. He was put on a Protonix drip and IV fluids, initial hemoglobin was 14.2, Dr. Washburn was consulted and an EGD was performed the same day of admission. This demonstrated moderate hiatal hernia long segment of Mahoney's esophagus, and the Mahoney's erosion at 35 cm and esophageal mass described as moderately elevated plaque like encompassing about one third of the circumference of the esophagus, had a worrisome appearance other than evidence of bleeding with a slight blood clot attached in the central portion, no luminal obstruction. Given these concerning findings he had biopsies taken of those 2 locations, which ultimately came back with invasive moderately differentiated adenocarcinoma arising in high grade dysplasia at 35 cm dru and invasive moderately to poorly differentiated adenocarcinoma at the 28 cm dru. At the 32 cm biopsy site there was inflamed gastric cardia type mucosa, no goblet cell intestinal metaplasia or dysplasia was identified. He had a CT of the abdomen pelvis with IV and p.o. contrast, which demonstrated focal mucosal thickening of the mid third of the esophagus, a little suspicion 0.5 cm pleural based nodule of the left lower lobe, no lymphadenopathy by size criteria, extensive colonic diverticulosis, diverticulum of the second stage of the duodenum, atherosclerosis, and enlarged prostate. He was seen by Dr. Juliana Harper on day of discharge who is recommending outpatient PET scan to be arranged as soon as possible. She has referred him up to physicians at [facility] including Dr. Ruperto Pandya and Dr. Deven Callahan both gastroenterologists hoping to do further EUS there. He has also been referred to Dr. Saranya Maria who may be a radiation oncologist. He will be following with Dr. Juliana Harper and she likely recommend that he would need chemotherapy and radiation followed by esophagectomy. His melena improved, he is now having greenish dark bowel movements rather than pure black. His hemoglobin has trended down from 14.2 to 12 and in the high 10s currently. He has not been tachycardic or hypotensive. He has been discharged on Protonix after he was transition out of the drip. He was recommended to abstain from alcohol, started on folate and thiamine supplementation and multivitamin. He was also found to be having macrocytosis with a MCV of 101 and B12 was low at 133, started on supplementation for that. Of note, he had been getting care through the [place] system as well most recently and had a brain MRI in 12/15/17, which showed no acute process. DISCHARGE MEDICATIONS: Include: 1. Finasteride 5 mg p.o. daily. 2. Tamsulosin 0.4 mg daily. 3. Cialis 5 mg p.o. daily p.r.n. New Medications: 1. Cyanocobalamin 2500 mcg p.o. daily. 2. Folic acid 1 mg p.o. daily. 3. Protonix 40 mg p.o. daily. 4. Thiamine 100 mg p.o. daily. DISCHARGE DIET: No restrictions. ACTIVITY: No restrictions. FOLLOWUP: The patient is to follow up with Dr. Hussain Bender within 7 days. He was referred to Dr. Saranya Maria, Dr. Ruperto Pandya or Dr. Deven Callahan at the [facility] and those are being arranged through Dr. Harper's office. She is also ordering or requesting a PET scan [facility]. He will be following with the Dr. Juliana Harper after these tests have been performed. TIME SPENT: Time spent on discharge 45 minutes. [id number]/[facility] #: [id number] [facility]
== END 2018-07-29 12:30 | disposition home or self-care (01) | DRG 375 ==
LOC: ED 07:28 → MED 12:51 → OBSVTOIN 07-28 10:00
PROVIDERS: ADMIT Internal Medicine; ATTEND Internal Medicine
PROC: 0DB58ZX Excision of Esophagus, Via Natural or Artificial Opening Endoscopic, Diagnostic (ICD-10-PCS; principal; 2018-07-28)
DX: C15.9 Malignant neoplasm of esophagus, unspecified (principal); D62 Acute posthemorrhagic anemia; K92.1 Melena; N40.0 Benign prostatic hyperplasia without lower urinary tract symptoms; F10.10 Alcohol abuse, uncomplicated; Y90.9 Presence of alcohol in blood, level not specified; K44.9 Diaphragmatic hernia without obstruction or gangrene; R63.4 Abnormal weight loss; H91.93 Unspecified hearing loss, bilateral; K57.30 Diverticulosis of large intestine without perforation or abscess without bleeding; E53.8 Deficiency of other specified B group vitamins; K21.0 Gastro-esophageal reflux disease with esophagitis; Z97.4 Presence of external hearing-aid; Z87.891 Personal history of nicotine dependence; Z72.89 Other problems related to lifestyle; Z82.49 Family history of ischemic heart disease and other diseases of the circulatory system; Z98.52 Vasectomy status; Z68.25 Body mass index [BMI] 25.0-25.9, adult; Z80.9 Family history of malignant neoplasm, unspecified; Z82.0 Family history of epilepsy and other diseases of the nervous system; Z86.010 Personal history of colon polyps
CPT/HCPCS: 36415; 71260; 74177; 80048; 80053; 81003; 82272; 82607; 82746; 83605; 83690; 83735; 84484; 85014; 85018; 85025; 85610; 85730; 86140; 87077; 88305; 88341; 88342; 88360; 93005; 99156; 99157; 99223; 99284; A9270-GY; G0378; J2250; J2405; J3010; Q9967